=== PATIENT | male | born 1995 | race Caucasian/White ===

== ENCOUNTER 2024-08-20 14:26 | Inpatient (IN) | payer SELFPAY ==
[2024-08-20] VITALS (23 sets, daily range): BP systolic 92–151; BP diastolic 55–86; PULSE 78–119; RESP 15–24; TEMP 36.4–38.8; O2SAT 91–100; BMI 37.3
[2024-08-20 14:59] LABS: Basophils # 0.1 10^3/uL (0.0-0.1); Basophils % 0.3 %; Hematocrit 44.7 % (37-53); Lymphocytes # 3.3 10^3/uL (0.8-4.8); Lymphocytes % 14.5 %; Mean Corpuscular HGB Conc 32.2 g/dL (30-55); Mean Corpuscular Hemoglobin 26.6 pg (27-33); Mean Corpuscular Volume 82.5 fl (82-101); Mean Platelet Volume 9.6 fL (7.4-10.4); Monocytes # 2.1 10^3/uL (0.2-0.9); Monocytes % 9.3 %; Neutrophils # 17.26 10^3/uL (1.8-7.7); Neutrophils % 75.3 %; Nucleated Red Blood Cells % 0 %; Platelet Count 318 10^3/cmm (157-399); Red Blood Count 5.42 10^6/uL (3.85-5.65); Red Cell Distribution Width 13.3 % (12.1-15.1); White Blood Count 22.89 10^3/uL (3.29-11.43)
--- NOTE | 2024-08-20 15:09 | W.ED.ABDPA2 ---
Documented by User: CRISTOBAL Babcock 08/20/24 17:04 HPI - Abdominal Pain General: Chief Complaint: Abdominal Pain Stated Complaint: abd pain Time Seen by Provider: 08/20/24 15:07 Source: patient and family Mode of arrival: ambulatory Limitations: no limitations History of Present Illness: A 29-year-old male presents to the emergency department complaining of severe abdominal pain. Patient states he threw up 4 times on Monday and has had abdominal pain ongoing since. Patient states the pain is 10/10. Patient has not had a bowel movement recently due to decreased appetite and lack of intact. Patient states he has been taking Tylenol to help with his symptoms. Patient denies any chest pain, palpitations, diarrhea, or blood in the stool. No fevers. Patient arrives visibly uncomfortable. Reports no past medical history and takes no medications. MD elicited complaint: abdominal pain Pertinent past history: none Onset (ago): day(s) Pain Consistency: constant Location: Diffuse Severity: severe Quality: cramping and sharp Radiation: none Migration to: no migration Exacerbating factors: nothing Relieving factors: nothing Associated Symptoms: Reports nausea and vomiting; Denies change in stool character, chills, constipation, diarrhea, dysuria, fever(s), hematochezia, hematuria, loose stools and melena Related Data Home Medications ?Medication ?Instructions ?Recorded ?Confirmed No Known Home Medications 08/20/24 08/20/24 Allergies Allergy/AdvReac Type Severity Reaction Status Date / Time No Known Allergies Allergy Verified 08/20/24 15:02 Review of Systems Const: Reports: change in appetite; Denies: fever(s), chills or fatigue Card: Denies: chest pain or palpitations Resp: Denies: dyspnea, productive cough, non-productive cough or wheezing GI: Reports: abdominal pain, nausea and vomiting; Denies: diarrhea, constipation, change in stool character, hematochezia or melena : Denies: flank pain, dysuria or hematuria Musc: Denies: neck pain, back pain, extremity pain, extremity swelling, joint swelling or joint redness Skin/Breast: Denies: rash Neuro: Denies: headache(s), numbness in extremities, weakness in extremities, sensory changes or dizziness Physical Exam Const: COMMON NORMALS: no limitations and well nourished GENERAL APPEARANCE: in distress (appears uncomfortable secondary to pain) and ill appearing Eye: COMMON NORMALS: no scleral icterus Resp: COMMON NORMALS: normal respiratory effort and clear to auscultation bilaterally AUSCULTATION: clear to auscultation bilaterally Cardio: COMMON NORMALS: regular rhythm RATE: tachycardic RHYTHM: regular rhythm GI: COMMON NORMALS: No hepatosplenomegaly present, no masses and no bruits INSPECTION: Yes normal to inspection AUSCULTATION: Yes Hypoactive bowel sounds present PALPATION: Yes Tenderness to palpation present (GI) (diffusely), Yes Guarding due to palpation present (GI), Yes Rigid due to palpation and Yes No hepatosplenomegaly present : COMMON NORMALS: Yes no CVA tenderness BLADDER/KIDNEY EXAM: Yes no CVA tenderness Back/Pelvis: COMMON NORMALS: no CVA tenderness and thoracic and lumbar spine normal to inspection Extremity: GENERAL: Yes normal exam except as noted Skin: COMMON NORMALS: no rashes or lesions noted and no jaundice GENERAL SKIN EXAM: no rashes or lesions noted Course Vital Signs: Vital signs: Vital Signs Temperature 97.8 F 08/21/24 03:42 Pulse Rate 81 08/21/24 03:42 Respiratory Rate 16 08/21/24 03:42 Blood Pressure 98/61 08/21/24 03:42 Pulse Oximetry 96 08/21/24 03:42 Oxygen Delivery Me thod Nasal Cannula 08/21/24 03:42 Oxygen Flow Rate 1 08/21/24 03:42 MDM - Abdominal Pain Medical Decision Making Patient is a 29-year-old male here for complaints of diffuse abdominal pain. Arrives visibly uncomfortable and tachycardic. His white count of 22.89. He has an elevated lactate. Patient meets sepsis criteria. He was given an ideal body weight fluid bolus. Blood cultures obtained. He was started on IV Zosyn. CT of his abdomen and pelvis showing a perforated appendicitis. Spoke to Dr. Culver who will take patient to the OR later this evening. Dr. Miranda aware of patient and agrees with care plan here. Lab Data 08/21/24 04:54 08/20/24 14:46 Labs/Radiology: Radiology Impressions Abdomen/Pelvis CT 08/20/24 15:14 IMPRESSION: Findings most suggestive of or consistent with acute appendicitis with rupture with associated component of free air/pneumoperitoneum and marked mesenteric infiltration/inflammation and edema as noted above. Follow-up surgical evaluation. ADDENDUM: 08/20/24 7830 THIS REPORT CONTAINS FINDINGS THAT MAY BE CRITICAL TO PATIENT CARE. The findings were verbally communicated via telephone conference with ELA FOX at 4:27 PM SENIOR VALIDATION ENGINEER on 08/20/2024. The findings were acknowledged and understood. Laboratory Results WBC 22.89 10^3/uL (3.29-11.43) H 08/20/24 14:46 RBC 5.42 10^6/uL (3.85-5.65) 08/20/24 14:46 Hgb 14.40 g/dL (11.27-16.99) 08/20/24 14:46 Hct 44.7 % (37-53) 08/20/24 14:46 MCV 82.5 fl (82-101) 08/20/24 14:46 MCH 26.6 pg (27-33) L 08/20/24 14:46 MCHC 32.2 g/dL (30-55) 08/20/24 14:46 RDW 13.3 % (12.1-15.1) 08/20/24 14:46 Plt Count 318 10^3/cmm (157-399) 08/20/24 14:46 MPV 9.6 fL (7.4-10.4) 08/20/24 14:46 Neut % (Auto) 75.3 % 08/20/24 14:46 Lymph % (Auto) 14.5 % 08/20/24 14:46 [place] % (Auto) 9.3 % 08/20/24 14:46 Eos % (Auto) 0.0 % 08/20/24 14:46 Baso % (Auto) 0.3 % 08/20/24 14:46 Neut # (Auto) 17.26 10^3/uL (1.8-7.7) H 08/20/24 14:46 Lymph # (Auto) 3.3 10^3/uL (0.8-4.8) 08/20/24 14:46 [place] # (Auto) 2.1 10^3/uL (0.2-0.9) H 08/20/24 14:46 Eos # (Auto) 0.0 10^3/uL (0.0-0.8) 08/20/24 14:46 Baso # (Auto) 0.1 10^3/uL (0.0-0.1) 08/20/24 14:46 Nucleated RBC % (auto) 0 % 08/20/24 14:46 Nucleated RBCs # 0.0 /100WBC 08/20/24 14:46 Sodium 131 mmol/L (136-145) L 08/20/24 14:46 Potassium 3.0 mmol/L (3.5-5.1) L 08/20/24 14:46 Chloride 90 mmol/L (98-107) L 08/20/24 14:46 Carbon Dioxide 24 mmol/L (22-29) 08/20/24 14:46 Anion Gap 20.0 (5-19) H 08/20/24 14:46 BUN 11 mg/dL (6-20) 08/20/24 14:46 Creatinine 1.1 mg/dL (0.7-1.2) 08/20/24 14:46 GFR Calculation 79.1 mL/min (90-130) L 08/20/24 14:46 Glucose 160 mg/dL (65-115) H 08/20/24 14:46 Calculated Osmolality 275 mOsm/kg (285-295) L 08/20/24 14:46 Lactic Acid 3.4 mmol/L (0.5-2.2) H 08/20/24 14:46 Lactic Acid (Sepsis) 1.3 mmol/L (0.5-2.2) 08/20/24 16:56 Calcium 8.8 mg/dL (8.5-10.5) 08/20/24 14:46 Total Bilirubin 0.7 mg/dL (0.15-1.2) 08/20/24 14:46 AST 12 U/L (0-40) 08/20/24 14:46 ALT 9 U/L (0-41) 08/20/24 14:46 Alkaline Phosphatase 88 U/L (40-130) 08/20/24 14:46 Total Protein 7.7 g/dL (6.6-8.7) 08/20/24 14:46 Albumin 4.0 g/dL (3.5-5.2) 08/20/24 14:46 Globulin 3.7 g/dL (1.3-4.6) 08/20/24 14:46 Lipase 10 U/L (13-60) L 08/20/24 14:46 Urine Color Yellow (Yellow) 08/20/24 15:15 Urine Appearance Clear (CLEAR) 08/20/24 15:15 Urine pH 6.0 (5-7) 08/20/24 15:15 Ur Specific [place] 1.013 (1.005-1.030) 08/20/24 15:15 Urine Protein Trace (Negative) A 08/20/24 15:15 Urine Glucose (UA) Negative (Normal) 08/20/24 15:15 Urine Ketones Trace (Negative) 08/20/24 15:15 Urine Blood Negative (Negative) 08/20/24 15:15 Urine Nitrate Negative (Negative) 08/20/24 15:15 Urine Bilirubin Negative (Negative) 08/20/24 15:15 Urine Urobilinogen 1.0 mg/dL (Negative) 08/20/24 15:15 Ur Leukocyte Esterase Negative (Negative) 08/20/24 15:15 Urine RBC 0-2 /hpf (0-2) 08/20/24 15:15 Urine WBC 6-10 /hpf (0-5) 08/20/24 15:15 Ur Squamous Epith Cells 0-5 /hpf (0-5) 08/20/24 15:15 Amorphous Sediment Not Reportable 08/20/24 15:15 Urine Bacteria None seen /hpf (NONE) 08/20/24 15:15 Hyaline Casts 12.81 /lpf 08/20/24 15:15 All radiology interpretation(s) finalized by discharge Discharge Plan Discharge Patient Disposition: Admitted As Inpatient Admit Provider: Jovan Culver Clinical Impression: Perforated appendicitis Condition: Stable Coding Level of Care Code ED Retail And Restaurant Associate for Chg Fwd Documented by User: Kimo Miranda DO 08/21/24 06:01 HPI - Abdominal Pain General: Chief Complaint: Abdominal Pain Stated Complaint: abd pain Time Seen by Provider: 08/20/24 15:07 Related Data Home Medications ?Medication ?Instructions ?Recorded ?Confirmed No Known Home Medications 08/20/24 08/20/24 Allergies Allergy/AdvReac Type Severity Reaction Status Date / Time No Known Allergies Allergy Verified 08/20/24 15:02 Course Vital Signs: Vital signs: Vital Signs Temperature 97.8 F 08/21/24 03:42 Pulse Rate 81 08/21/24 03:42 Respiratory Rate 16 08/21/24 03:42 Blood Pressure 98/61 08/21/24 03:42 Pulse Oximetry 96 08/21/24 03:42 Oxygen Delivery Me thod Nasal Cannula 08/21/24 03:42 Oxygen Flow Rate 1 08/21/24 03:42 MDM - Abdominal Pain Medical Decision Making Patient is a 29-year-old male here for complaints of diffuse abdominal pain. Arrives visibly uncomfortable and tachycardic. His white count of 22.89. He has an elevated lactate. Patient meets sepsis criteria. He was given an ideal body weight fluid bolus. Blood cultures obtained. He was started on IV Zosyn. CT of his abdomen and pelvis showing a perforated appendicitis. Spoke to Dr. Culver who will take patient to the OR later this evening. Dr. Miranda aware of patient and agrees with care plan here. Chart reviewed and patient discussed with midlevel. Agree with assessment and plan. Lab Data 08/21/24 04:54 08/20/24 14:46 Labs/Radiology: Radiology Impressions Abdomen/Pelvis CT 08/20/24 15:14 IMPRESSION: Findings most suggestive of or consistent with acute appendicitis with rupture with associated component of free air/pneumoperitoneum and marked mesenteric infiltration/inflammation and edema as noted above. Follow-up surgical evaluation. ADDENDUM: 08/20/24 1630 THIS REPORT CONTAINS FINDINGS THAT MAY BE CRITICAL TO PATIENT CARE. The findings were verbally communicated via telephone conference with ELA FOX at 4:27 PM SENIOR VALIDATION ENGINEER on 08/20/2024. The findings were acknowledged and understood. Laboratory Results WBC 22.89 10^3/uL (3.29-11.43) H 08/20/24 14:46 RBC 5.42 10^6/uL (3.85-5.65) 08/20/24 14:46 Hgb 14.40 g/dL (11.27-16.99) 08/20/24 14:46 Hct 44.7 % (37-53) 08/20/24 14:46 MCV 82.5 fl (82-101) 08/20/24 14:46 MCH 26.6 pg (27-33) L 08/20/24 14:46 MCHC 32.2 g/dL (30-55) 08/20/24 14:46 RDW 13.3 % (12.1-15.1) 08/20/24 14:46 Plt Count 318 10^3/cmm (157-399) 08/20/24 14:46 MPV 9.6 fL (7.4-10.4) 08/20/24 14:46 Neut % (Auto) 75.3 % 08/20/24 14:46 Lymph % (Auto) 14.5 % 08/20/24 14:46 [place] % (Auto) 9.3 % 08/20/24 14:46 Eos % (Auto) 0.0 % 08/20/24 14:46 Baso % (Auto) 0.3 % 08/20/24 14:46 Neut # (Auto) 17.26 10^3/uL (1.8-7.7) H 08/20/24 14:46 Lymph # (Auto) 3.3 10^3/uL (0.8-4.8) 08/20/24 14:46 [place] # (Auto) 2.1 10^3/uL (0.2-0.9) H 08/20/24 14:46 Eos # (Auto) 0.0 10^3/uL (0.0-0.8) 08/20/24 14:46 Baso # (Auto) 0.1 10^3/uL (0.0-0.1) 08/20/24 14:46 Nucleated RBC % (auto) 0 % 08/20/24 14:46 Nucleated RBCs # 0.0 /100WBC 08/20/24 14:46 Sodium 131 mmol/L (136-145) L 08/20/24 14:46 Potassium 3.0 mmol/L (3.5-5.1) L 08/20/24 14:46 Chloride 90 mmol/L (98-107) L 08/20/24 14:46 Carbon Dioxide 24 mmol/L (22-29) 08/20/24 14:46 Anion Gap 20.0 (5-19) H 08/20/24 14:46 BUN 11 mg/dL (6-20) 08/20/24 14:46 Creatinine 1.1 mg/dL (0.7-1.2) 08/20/24 14:46 GFR Calculation 79.1 mL/min (90-130) L 08/20/24 14:46 Glucose 160 mg/dL (65-115) H 08/20/24 14:46 Calculated Osmolality 275 mOsm/kg (285-295) L 08/20/24 14:46 Lactic Acid 3.4 mmol/L (0.5-2.2) H 08/20/24 14:46 Lactic Acid (Sepsis) 1.3 mmol/L (0.5-2.2) 08/20/24 16:56 Calcium 8.8 mg/dL (8.5-10.5) 08/20/24 14:46 Total Bilirubin 0.7 mg/dL (0.15-1.2) 08/20/24 14:46 AST 12 U/L (0-40) 08/20/24 14:46 ALT 9 U/L (0-41) 08/20/24 14:46 Alkaline Phosphatase 88 U/L (40-130) 08/20/24 14:46 Total Protein 7.7 g/dL (6.6-8.7) 08/20/24 14:46 Albumin 4.0 g/dL (3.5-5.2) 08/20/24 14:46 Globulin 3.7 g/dL (1.3-4.6) 08/20/24 14:46 Lipase 10 U/L (13-60) L 08/20/24 14:46 Urine Color Yellow (Yellow) 08/20/24 15:15 Urine Appearance Clear (CLEAR) 08/20/24 15:15 Urine pH 6.0 (5-7) 08/20/24 15:15 Ur Specific [place] 1.013 (1.005-1.030) 08/20/24 15:15 Urine Protein Trace (Negative) A 08/20/24 15:15 Urine Glucose (UA) Negative (Normal) 08/20/24 15:15 Urine Ketones Trace (Negative) 08/20/24 15:15 Urine Blood Negative (Negative) 08/20/24 15:15 Urine Nitrate Negative (Negative) 08/20/24 15:15 Urine Bilirubin Negative (Negative) 08/20/24 15:15 Urine Urobilinogen 1.0 mg/dL (Negative) 08/20/24 15:15 Ur Leukocyte Esterase Negative (Negative) 08/20/24 15:15 Urine RBC 0-2 /hpf (0-2) 08/20/24 15:15 Urine WBC 6-10 /hpf (0-5) 08/20/24 15:15 Ur Squamous Epith Cells 0-5 /hpf (0-5) 08/20/24 15:15 Amorphous Sediment Not Reportable 08/20/24 15:15 Urine Bacteria None seen /hpf (NONE) 08/20/24 15:15 Hyaline Casts 12.81 /lpf 08/20/24 15:15 Discharge Plan Discharge Patient Disposition: Admitted As Inpatient Admit Provider: Jovan Culver Clinical Impression: Perforated appendicitis Condition: Stable Coding Level of Care Code ED Retail And Restaurant Associate for Josh Bennett
--- NOTE | 2024-08-20 15:14 | CTR_ITS ---
PROCEDURE INFORMATION: Exam: CT Abdomen And Pelvis With Contrast Exam date and time: 08/20/2024 3:48 PM Age: 29 years old Clinical indication: Abdominal pain; Generalized; Additional info: Severe abdominal pain, leukocytosis TECHNIQUE: Imaging protocol: Computed tomography of the abdomen and pelvis with contrast. Radiation optimization: All CT scans at this facility use at least one of these dose optimization techniques: automated exposure control; mA and/or kV adjustment per patient size (includes targeted exams where dose is matched to clinical indication); or iterative reconstruction. Contrast material: OMNIPAQUE 350; Contrast volume: 100 ml; Contrast route: INTRAVENOUS (IV); COMPARISON: No relevant prior studies available. RADIATION DOSE METRICS: Total DLP (mGy-cm): 1201.73 FINDINGS: Lungs: No infiltrate or effusion is seen within the visualized lung bases. Liver: Normal. No mass. Gallbladder and biliary ducts: Normal. No calcified stones. No ductal dilation. Pancreas: Normal. No ductal dilation. Spleen: Normal. No splenomegaly. Adrenal glands: Normal. No mass. Kidneys and ureters: Normal. No hydronephrosis. Stomach and bowel: No small bowel dilatation or obstruction. Incomplete colonic distension. Fluid within the right colon, with abnormal or edematous appearance of the proximal right colon/cecal region. Prominent pericecal mesenteric stranding and infiltration is seen, extending down into the right pelvis. Lack of identification of a normal appendix in the pericecal region with prominent infiltration and edema/inflammation and mild free air or pneumoperitoneum is seen upper right abdomen and also suggested in the lower right abdomen/upper right pelvis. Associated mild free fluid within the dependent pelvis. Stranding or inflammatory change likely related to appendicitis with perforation, affecting the adjacent cecum and adjacent small bowel in the right pelvis. A discrete or defined abscess fluid collection is not identified, though prominent stranding inflammatory change and/or edema is seen lower right abdomen and right pelvis region. Additional mild scattered mesenteric stranding or edema within the abdomen. Appendix: See Stomach and bowel finding. Intraperitoneal space: Other than inflammation/edema lower right abdomen/right pelvis and mild free fluid within the dependent pelvis, no significant ascites within the abdomen otherwise. Free air or pneumoperitoneum as already noted. Vasculature: Unremarkable. No abdominal aortic aneurysm. Lymph nodes: No significant lymphadenopathy. Urinary bladder: Urinary bladder is not well distended and with secondary mild wall thickening. Reproductive: Unremarkable as visualized. Bones/joints: Bone windows show no acute osseous abnormality. Soft tissues: Unremarkable. CT/CT abdomen pelvis w con* [id number] IMPRESSION: Findings most suggestive of or consistent with acute appendicitis with rupture with associated component of free air/pneumoperitoneum and marked mesenteric infiltration/inflammation and edema as noted above. Follow-up surgical evaluation.
[2024-08-20 15:17] LABS: Alanine Aminotransferase 9 U/L (0-41); Alkaline Phosphatase 88 U/L (40-130); Aspartate Amino Transferase 12 U/L (0-40); Blood Urea Nitrogen 11 mg/dL (6-20); Calcium 8.8 mg/dL (8.5-10.5); Carbon Dioxide 24 mmol/L (22-29); Chloride 90 mmol/L (98-107); Creatinine Clr Calc Pharmacy 127.5009; Globulin 3.7 g/dL (1.3-4.6); Glomerular Filtration Rate 79.1 mL/min (90-130); Glucose 160 mg/dL (65-115); Lipase 10 U/L (13-60); Osmolality Calculated 275 mOsm/kg (285-295); Sodium 131 mmol/L (136-145); Total Bilirubin 0.7 mg/dL (0.15-1.2); Total Protein 7.7 g/dL (6.6-8.7)
[2024-08-20 15:28] LABS: Bilirubin Urine Negative (Negative); Blood Urine Negative (Negative); Glucose Urine UA Negative (Normal); Ketones Urine Trace (Negative); Leukocyte Esterase Urine Negative (Negative); Nitrate Urine Negative (Negative); Protein Urine Trace (Negative); Specific Gravity, Urine 1.013 (1.005-1.030); Urine Appearance Clear (CLEAR); Urine Color Yellow (Yellow)
[2024-08-20] MEDS: ondansetron 2 mg/ML SDV 2 mL 4 MG IVP (15:29)
[2024-08-20] MEDS: morphine 4 mg/mL SDV 1 mL IVP (15:29)
[2024-08-20 15:30] LABS: Add Urine Microscopic? YES; Bacteria Urine None Seen /hpf; Hyaline Casts Urine 12.81 /lpf; RBC Urine 0-2 /hpf (0-2); Squamous Epithelial Cell Urine 0-5 /hpf (0-5)
[2024-08-20] MEDS: sodium chloride 0.9% 1,000 ML 999 ML IV (15:33)
[2024-08-20 15:37] LABS: Lactic Sepsis W/Reflex 3.4 mmol/L (0.5-2.2)
[2024-08-20] MEDS: iohexol 350 mg/mL 500 mL Btl (per mL) IV (15:50)
[2024-08-20 15:55] LABS: UA Slide Review UA Slide Review Perf
[2024-08-20 15:57] LABS: Add Urine Culture? No
[2024-08-20] MEDS: HYDROMORPHONE HCL 0.5 MG/0.5 ML INJ IVP (15:57)
[2024-08-20] MEDS: sodium chloride 0.9% 1,000 ML 1500 ML IV (16:35)
--- NOTE | 2024-08-20 16:46 | P.HP_ITS ---
Providers/Chief Complaint 2 Chief Complaint: abd pain History of Present Illness Sudheer Rhodes is a 29 year old male who presents with perforated appendicitis. Patient reports several days of right lower quadrant pain. Intermittent nausea vomiting. No abdominal surgeries. Medications/Allergies Home Medications ?Medication ?Instructions ?Recorded ?Confirmed ?Last Taken ?Type No Known Home Medications 08/20/2408/10 Unknown History Allergies Allergy/AdvReac Type Severity Reaction Status Date / Time No Known Allergies Allergy Verified 08/20/24 15:02 Vitals/I&O/Wt Last Vital Signs Temp 98.4 F 08/20/24 14:57 Pulse 108 H 08/20/24 16:30 Resp 15 08/20/24 16:30 BP 137/72 08/20/24 16:30 Pulse Ox 95 08/20/24 16:30 O2 Del Method Room Air 08/20/24 16:30 Weight last 48 hrs Weight 260 lb Physical Exam 2 Narrative: Chest: Unlabored breathing room air. No lymphadenopathy. Heart: Regular rate and rhythm. Abdomen: Soft, tender right lower quadrant, mildly distended. No masses or lymphadenopathy. Data 08/20/24 14:46 08/20/24 14:46 A&P Assessment and plan (1) Perforated appendicitis: Plan 29-year-old male who presents with perforated appendicitis. Discussed risk and benefits and patient agrees to proceed with laparoscopic appendectomy, possible open, possible drain placement. Patient understands that since this is perforated appendicitis we may need to widely drain the right lower quadrant and perform an interval appendectomy several weeks down the line. PDMP PDMP Reviewed: Not Reviewed Attestations 2 Medical Necessity Statement*: IV antibiotics, IV pain meds, IV fluid Coding Level of Care Code 28961 Diagnoses Perforated appendicitis K35.32 Time Spent (min) 30
[2024-08-20 16:57] LABS: Reflex Lactate Order REFLEX LACTIC ORDERD
[2024-08-20] MEDS: piperacillin-tazobactam 3.375 GM in sodium chloride 0.9% (plus) 50 ML IV ×2 (17:06→18:00)
--- NOTE | 2024-08-20 17:07 | ANES.PREANE2 ---
Pre-Anesthetic Assessment Height/Weight: Height 5 ft 10 in Weight 260 lb Temp Pulse Resp BP Pulse Ox O2 Del Method 98.4 F 108 H 15 137/72 95 Room Air 08/20/24 14:57 08/20/24 16:30 08/20/24 16:30 08/20/24 16:30 08/20/24 16:30 08/20/24 16:30 Preop Diagnosis: acute appendicitis Operation Date: 08/20/24 13:55 Proposed Procedures p Appendectomy(Right) - Jovan Culver MD Was Beta Heidy taken within 24 hours: N/A Was Clonidine taken within 24 hours: N/A Social No alcohol and No tobacco Exam alert, oriented x 3, clear to auscultation bilaterally and regular rate & rhythm Airway Submandibular: within normal limits Cervical ROM: within normal limits Mallampati: Class I Dentition: full Anesthetic Plan ASA status: 2E Anesthesia: General Other: Patient presented to the ED today with severe abdominal pain, imaging suggetive of acute appendicitis. No prior issues with anesthesia NPO since 10am, yony meredith Labs reviewed, leukocytosis noted hyponatremia, na 131 hypokalemia, k+ 3.0 Patient is afebrible, tachycardic in ED Plan for GETA Medications/Allergies Home Medications ?Medication ?Instructions ?Recorded ?Confirmed ?Last Taken ?Type No Known Home Medications 08/20/24 08/20/24 Unknown History Allergies Allergy/AdvReac Type Severity Reaction Status Date / Time No Known Allergies Allergy Verified 08/20/24 15:02 Data Anesthesia 08/20/24 14:46 08/20/24 14:46 Short CBC 08/20/24 Range/Units 14:46 WBC 22.89 H (3.29-11.43) 10^3/uL Hgb 14.40 (11.27-16.99) g/dL Hct 44.7 (37-53) % MCV 82.5 (82-101) fl Plt Count 318 (157-399) 10^3/cmm Neut % (Auto) 75.3 % Neut # (Auto) 17.26 H (1.8-7.7) 10^3/uL BMP 08/20/24 14:46 Sodium 131 L Potassium 3.0 L Chloride 90 L Carbon Dioxide 24 BUN 11 Creatinine 1.1 Glucose 160 H Calcium 8.8 Liver Function 08/20/24 Range/Units 14:46 Total Bilirubin 0.7 (0.15-1.2) mg/dL AST 12 (0-40) U/L ALT 9 (0-41) U/L Alkaline Phosphatase 88 (40-130) U/L Albumin 4.0 (3.5-5.2) g/dL Urine 08/20/24 Range/Units 15:15 Urine Color Yellow (Yellow) Urine Appearance Clear (CLEAR) Urine pH 6.0 (5-7) Ur Specific [place] 1.013 (1.005-1.030) Urine Protein Trace A (Negative) Urine Glucose (UA) Negative (Normal) Urine Ketones Trace (Negative) Urine Nitrate Negative (Negative) Urine Bilirubin Negative (Negative) Ur Leukocyte Esterase Negative (Negative) Urine RBC 0-2 (0-2) /hpf Urine WBC 6-10 (0-5) /hpf Microbiology 08/20/24 16:56 Blood Culture - Preliminary Blood SPECIMEN COLLECTED 08/20/24 16:54 Blood Culture - Preliminary Blood SPECIMEN COLLECTED Cardiac Studies: No Data to Display
[2024-08-20 17:19] LABS: Lactic Acid level (Lactate) 1.3 mmol/L (0.5-2.2)
--- NOTE | 2024-08-20 18:06 | PC.NURSE ---
1520. 137/72 107 hr 99% RA. rolled to surgery.
[2024-08-20] MEDS: BUPivacaine 0.25% INJ 10 mL INJECTION (19:00)
[2024-08-20] MEDS: lidocaine-epi 1% 20 mL INJ INJECTION (19:00)
--- NOTE | 2024-08-20 19:16 | P.OP_ITS ---
Operative Report Date of procedure: August 20, 2024 Pre-op diagnosis: Perforated appendicitis Post-op diagnosis: same Post-op findings: Large abscess in right iliac fossa. Unable to dissect appendix safely. Procedure done: Attempted laparoscopic appendectomy. Peritoneal drain placement x 2 and abdominal washout. Implants: N/A Specimens removed/disposition: N/A Pathology: none sent Surgeon: Jovan uClver MD Electrical/Instrument Technician: N/A Anesthesia: General Estimated blood loss (mL): 20 Complications: N/A Findings: Perforated appendicitis. Large abscess in right iliac fossa. Unable to dissect appendix safely. Abdominal washout using 4 L of normal saline. Placed two 19 Hebrew Sai drains in the pelvis. Condition: stable Disposition: floor Brief History: 29-year-old male who presented with perforated appendicitis. Discussed risk and benefits of laparoscopic appendectomy possible open, possible drain placement. Patient agreed to proceed. Procedure: After having a discussion about risks and benefits and obtaining consent from POA, patient was brought to the OR. SCDs were functioning prior to intubation. Zosyn was given prior to incision. General anesthesia was administered. Left arm was tucked. A pacheco catheter was placed. The abdomen was prepped and draped in the usual sterile fashion. Insufflation was achieved using a Veress needle at Kirby's point (15mmHg). A 5mm port was placed at the umbilicus using an optical view port. Then a 5mm port was placed suprapubically, and a 12mm port was placed in the left lower quadrant. The abdomen was inspected and no injuries were noted. Patient was placed in Trendelenburg and the table was rotated left. Upon inspection of the right iliac fossa, a large abscess was encountered. Using a laparoscopic suction/erp business analyst the abscess was washed out. The small bowel was densely adhered to the cecum and given the severe inflammatory changes with significant disruption of the right iliac fossa anatomy, I aborted the dissection given that I did not deem it safe to continue with the appendectomy. I then proceeded to wash out the right iliac fossa as well as the entire abdomen using 4L of normal saline. I had to place an additional right lower quadrant 12mm port for adequate drain placement. I then placed one 19F Sai drain in the right iliac fossa, and another one in the left iliac fossa. The abdomen was desufflated. The incisions were irrigated with normal saline before proceeding to close them with salena. The Veress needle site was closed using surgical glue. Gauze dressings were applied. Pacheco catheter removed prior to the patient waking up. The patient woke up from anesthesia without any complications and transferred to PACU.
--- NOTE | 2024-08-20 20:18 | ANE.PACU2 ---
Inpatient post-anesthesia follow up: Airway intact: Yes Vital signs: Temperature 98.2 F Pulse Rate 97 Respiratory Rate 18 Blood Pressure 129/76 Pulse Oximetry 90 Oxygen Delivery Me thod Room Air Oxygen Flow Rate 1 Fraction of Inspir ed Oxygen Hydration adequate: Yes Nausea and vomiting: No Pain level: 1 Mental status: Baseline
--- NOTE | 2024-08-20 20:31 | PC.NURSE ---
0826 - assisted to 256-2 per this nurse and Raquel BEATTY, RN - [address] at 2LNC - IV to right ac patent - abd dressing c/d/i x2 Sai drains compressed - pt alert and in no distress with family at side upon this nurse exiting - Bedside hand off to Johana - BP 106/68 - pulse 103 - 02% 2LNC - temp 99
[2024-08-20] MEDS: lactated ringers 1,000 ML 100 ML IV (20:44)
[2024-08-20] MEDS: ketorolac 30 mg/mL INJ 15 MG IVP (20:44)
[2024-08-21] VITALS (9 sets, daily range): BP systolic 93–146; BP diastolic 61–77; PULSE 71–107; RESP 16–18; TEMP 36.4–37.2; O2SAT 90–98
[2024-08-21] MEDS: piperacillin-tazobactam 3.375 GM in sodium chloride 0.9% (plus) 50 ML IV ×3 (00:31→16:52)
[2024-08-21] MEDS: ketorolac 30 mg/mL INJ 15 MG IVP ×4 (02:24→20:34)
[2024-08-21 05:23] LABS: Basophils % 0.2 %; Hematocrit 41.3 % (37-53); Lymphocytes # 0.5 10^3/uL (0.8-4.8); Lymphocytes % 3.1 %; Mean Corpuscular HGB Conc 31.5 g/dL (30-55); Mean Corpuscular Hemoglobin 26.2 pg (27-33); Mean Corpuscular Volume 83.1 fl (82-101); Mean Platelet Volume 9.9 fL (7.4-10.4); Monocytes # 0.7 10^3/uL (0.2-0.9); Monocytes % 4.6 %; Neutrophils # 13.71 10^3/uL (1.8-7.7); Neutrophils % 91.8 %; Nucleated Red Blood Cells % 0 %; Platelet Count 213 10^3/cmm (157-399); Red Blood Count 4.97 10^6/uL (3.85-5.65); Red Cell Distribution Width 13.3 % (12.1-15.1); White Blood Count 14.93 10^3/uL (3.29-11.43)
[2024-08-21 06:01] LABS: Anion Gap 14.7 (5-19); Blood Urea Nitrogen 13 mg/dL (6-20); Calcium 8.3 mg/dL (8.5-10.5); Carbon Dioxide 24 mmol/L (22-29); Chloride 100 mmol/L (98-107); Creatinine Clr Calc Pharmacy 162.0196; Glomerular Filtration Rate 99.8 mL/min (90-130); Glucose 182 mg/dL (65-115); Osmolality Calculated 283 mOsm/kg (285-295); Potassium 4.7 mmol/L (3.5-5.1); Sodium 134 mmol/L (136-145)
[2024-08-21] MEDS: heparin 5,000 unit/mL INJ 1 mL 5000 UNIT SUBCUT ×2 (08:03→16:51)
--- NOTE | 2024-08-21 09:53 | PC.CHAP ---
Pastoral Care Encounter/Spiritual Assessment Type of Contact [] Declined electric solderer visit [] Patient/Family/Request visit [] Outpatient visit [] Follow-up visit [] Physician referral [] Code/Alert [x] Routine visit [] Staff referral [] Actively dying [] Patient sleeping [x] Family support [] [] Out of room [] Palliative care [] [] Receiving care in room [] Pre-surgical visit [] Trauma [] Long length of stay [] ICU visit [] Other: Relational/Emotional Strength [x] Patient feels connected with others/family/visitors/staff [] Distress [] Loneliness/isolation [] Abandonment Spirituality of Patient [x] Person of Nyla [] Attends Anglican of their Nyla [x] Believes in Prayer [] Reads Bible or Protestant materials [] There are Spiritual issues to be addressed Knifer Up Interventions [x] Prayer [x] Active listening [x] Non-anxious presence [x] Spiritual/emotional support [] Crisis/trauma care [] Spiritual counseling [] Bereavement support [] Provided bereavement packet [] Provided Bible/devotional materials [] Provided toy/stuffed animal, coloring book to patient or family member [] Provided Communion [] Anointing/Katy [] Salvation [x] Completed spiritual assessment [] Other: Impact on Illness or Injury [] Angry [] Fearful [] Anxious [] Often cries [] Exhaustion [] Unable to work [] Unable to attend anabaptism [] Unable to walk/stand [] Unable to read [] Unable to drive [] Unable to eat/drink [] Unable to sleep [] Unable to be with family [] Patient intubated [] Other: Summary Time spent with patient 5 min
--- OUTSIDE RECORDS SUMMARY | 2024-08-21 10:42 | XMS_ITS | Patient Health Record ---
Author Organization [facility] Address [address] [place] [address] Support Name Relationship Address Phone Chauncey Rhodes Emergency Contact [address] [place] [address] Malou Rhodes Guarantor Unknown [phone] Reason For Referral No Information Medications Medication SIG (Take, Route, Fr equency, Duration) Notes Start Date End Date Status Nasonex 50 MCG/ACT 2 sprays in each nos tril Nasally Once a day for 30 day(s) 07/24/2016 Active Sudafed 30 MG 1 tablet as needed O rally every 6 hrs for 6 days 07/24/2016 Active Meclizine HCl 25 MG 1 tablet as needed O rally Once a day for 14 days 07/24/2016 Active Plan Of Treatment No Information Medical (General) History Medical History History ICD Code Ear issues
[2024-08-21] MEDS: morphine 4 mg/mL SDV 1 mL IVP ×2 (12:22→20:34)
--- NOTE | 2024-08-21 12:29 | P.PN_ITS ---
Subjective 2 Subjective: White count down No fevers Pain mildly improved Left drain purulent. Right drain serosanguineous. Patient tolerating regular diet. Vitals/I&O/Wt Last Vital Signs Temp 97.6 F 08/21/24 08:00 Pulse 71 08/21/24 08:00 Resp 17 08/21/24 12:22 BP 100/61 08/21/24 08:00 Pulse Ox 98 08/21/24 08:00 O2 Del Method Room Air 08/21/24 08:00 O2 Flow Rate 1 08/21/24 03:42 08/20/24 08/21/24 08/21/24 22:59 06:59 14:59 Intake Total 150 / 150 553.333 / 703.333 480 / 480 Output Total 270 / 270 110 / 380 125 / 125 Balance -120 / -120 443.333 / 323.333 355 / 355 Weight last 48 hrs Weight 279 lb 14.4 oz Weight 279 lb 11.2 oz Weight 260 lb Physical Exam 2 Narrative: Chest: Unlabored breathing room air. No lymphadenopathy. Heart: Regular rate and rhythm. Abdomen: Soft, tender diffusely, mildly distended. No masses or lymphadenopathy. Right drain serosanguineous. Left drain purulent. Data 08/21/24 04:54 08/21/24 04:54 Micro: Microbiology 08/20/24 16:56 Blood Culture - Preliminary Blood SPECIMEN COLLECTED 08/20/24 16:54 Blood Culture - Preliminary Blood SPECIMEN COLLECTED A&P Assessment and plan (1) Perforated appendicitis: Plan 29-year-old male who presented with perforated appendicitis. POD 1 1 diagnostic laparoscopy, washout, drain placement x 2. Responding appropriately. Okay for regular diet. Will plan to continue with IV antibiotics and assess response. Anticipating hospital stay greater than 2 nights. PDMP PDMP Reviewed: Not Reviewed Attestations 2 Medical Necessity Statement*: IV antibiotics, serial physical exams Coding Level of Care Code 11118 Diagnoses Perforated appendicitis K35.32 Time Spent (min) 30
[2024-08-21] MEDS: lactated ringers 1,000 ML 50 ML IV (20:34)
[2024-08-21] MEDS: ondansetron 2 mg/ML SDV 2 mL 4 MG IVP (20:46)
[2024-08-22] VITALS (7 sets, daily range): BP systolic 107–134; BP diastolic 56–78; PULSE 95–108; RESP 16–20; TEMP 36.8–37.2; O2SAT 89–94
[2024-08-22] MEDS: heparin 5,000 unit/mL INJ 1 mL 5000 UNIT SUBCUT ×4 (00:01→23:15)
[2024-08-22] MEDS: ketorolac 30 mg/mL INJ 15 MG IVP ×4 (02:10→19:56)
[2024-08-22] MEDS: ondansetron 2 mg/ML SDV 2 mL 4 MG IVP ×3 (06:06→22:31)
--- NOTE | 2024-08-22 06:33 | PC.NURSE ---
Dr. Anand notified of nausea not relieved by Zofran. PRN Compazine ordered.
[2024-08-22] MEDS: prochlorperazine 10 mg/2 mL Inj 5 MG IVP (06:45)
[2024-08-22] MEDS: piperacillin-tazobactam 3.375 GM in sodium chloride 0.9% (plus) 50 ML IV ×4 (08:34→23:11)
[2024-08-22 11:25] LABS: Basophils % 0.1 %; Eosinophils % 0.1 %; Lymphocytes # 0.7 10^3/uL (0.8-4.8); Lymphocytes % 4.2 %; Mean Corpuscular HGB Conc 32.1 g/dL (30-55); Mean Corpuscular Hemoglobin 26.2 pg (27-33); Mean Corpuscular Volume 81.6 fl (82-101); Mean Platelet Volume 9.6 fL (7.4-10.4); Monocytes # 0.9 10^3/uL (0.2-0.9); Monocytes % 5.7 %; Neutrophils # 14.37 10^3/uL (1.8-7.7); Neutrophils % 89.5 %; Nucleated Red Blood Cells % 0 %; Platelet Count 265 10^3/cmm (157-399); Red Blood Count 5.15 10^6/uL (3.85-5.65); Red Cell Distribution Width 13.5 % (12.1-15.1); White Blood Count 16.04 10^3/uL (3.29-11.43)
[2024-08-22] MEDS: morphine 4 mg/mL SDV 1 mL IVP (12:22)
--- NOTE | 2024-08-22 12:37 | PC.NURSE ---
Pt has had several loose BM's and an episode of emesis. This nurse called to inform Dr. Culver at 1235. Orders given to bump up LR to 100mL/Hr and change diet to clear liquid diet.
--- NOTE | 2024-08-22 14:59 | P.PN_ITS ---
Subjective 2 Subjective: Afebrile Nauseated Heart rate low 100 Drains serosanguineous Vitals/I&O/Wt Last Vital Signs Temp 98.3 F 08/22/24 12:00 Pulse 104 H 08/22/24 12:00 Resp 18 08/22/24 12:22 BP 117/75 08/22/24 12:00 Pulse Ox 94 08/22/24 12:22 O2 Del Method Nasal Cannula 08/22/24 12:00 O2 Flow Rate 1 08/22/24 03:48 08/21/24 08/22/24 08/22/24 22:59 06:59 14:59 Intake Total 170 / 1556.667 461.667 / 2018.334 2332.5 / 2332.5 Output Total 40 / 195 560 / 755 110 / 110 Balance 130 / 1361.667 -98.333 / 6314.609 5974.5 / 2222.5 Weight last 48 hrs Weight 280 lb 11.2 oz Weight 279 lb 14.4 oz Weight 279 lb 11.2 oz Physical Exam 2 Narrative: Chest: Unlabored breathing room air. No lymphadenopathy. Heart: Regular rate and rhythm. Abdomen: Soft, diffusely tender, mildly distended. No masses or lymphadenopathy. Drains are serosanguineous Data 08/22/24 11:15 08/21/24 04:54 Micro: Microbiology 08/20/24 16:56 Blood Culture - Preliminary Blood NEGATIVE TO DATE 08/20/24 16:54 Blood Culture - Preliminary Blood NEGATIVE TO DATE A&P Assessment and plan (1) Perforated appendicitis: Plan 29-year-old male who presented with perforated appendicitis. POD 2 diagnostic laparoscopy with washout and drain placement x 2. Today nauseated and feeling slightly worse. Will increase IV fluids to 100 an hour. Continue IV antibiotics. Drains are now serosanguineous. Expecting a 5-day course of IV antibiotics. Will repeat CT scan on day 5. PDMP PDMP Reviewed: Not Reviewed Attestations 2 Medical Necessity Statement*: IV antibiotics, IV fluids, serial physical exams. Coding Level of Care Code 39496 Diagnoses Perforated appendicitis K35.32 Time Spent (min) 30
[2024-08-23] MEDS: ketorolac 30 mg/mL INJ 15 MG IVP ×3 (02:00→13:50)
[2024-08-23] MEDS: prochlorperazine 10 mg/2 mL Inj 5 MG IVP ×3 (03:56→20:50)
[2024-08-23 03:58] VITALS: BP 129/76; PULSE 88; RESP 18; TEMP 36.9; O2SAT 90
[2024-08-23 07:40] VITALS: BP 115/73; PULSE 87; RESP 17; TEMP 36.8; O2SAT 90
[2024-08-23] MEDS: ondansetron 2 mg/ML SDV 2 mL 4 MG IVP ×2 (08:25→13:50)
[2024-08-23] MEDS: heparin 5,000 unit/mL INJ 1 mL 5000 UNIT SUBCUT ×2 (08:27→16:26)
[2024-08-23] MEDS: piperacillin-tazobactam 3.375 GM in sodium chloride 0.9% (plus) 50 ML IV ×2 (08:27→16:26)
--- NOTE | 2024-08-23 09:09 | P.PN_ITS ---
Subjective 2 Subjective: Multiple episodes of emesis overnight Abdomen soft, nonperitonitic Drains serosanguineous White blood cell count pending Afebrile, vital signs stable Vitals/I&O/Wt Last Vital Signs Temp 98.3 F 08/23/24 07:40 Pulse 87 08/23/24 07:40 Resp 17 08/23/24 07:40 BP 115/73 08/23/24 07:40 Pulse Ox 90 08/23/24 07:40 O2 Del Method Nasal Cannula 08/23/24 07:40 O2 Flow Rate 2.5 08/23/24 03:58 08/22/24 08/23/24 08/23/24 22:59 06:59 14:59 Intake Total 276.667 / 2609.167 530 / 3139.167 Output Total 160 / 270 300 / 570 Balance 116.667 / 2339.167 230 / 2569.167 Weight last 48 hrs Weight 276 lb 1.6 oz Weight 280 lb 11.2 oz Physical Exam 2 Narrative: Chest: Unlabored breathing room air. No lymphadenopathy. Heart: Regular rate and rhythm. Abdomen: Soft, diffusely tender, mildly distended. No masses or lymphadenopathy. Drain serosanguineous. Benign abdomen. Data 08/22/24 11:15 08/21/24 04:54 A&P Assessment and plan (1) Perforated appendicitis: Plan 29-year-old male who presented with perforated appendicitis. POD 3 diagnostic laparoscopy, washout, drain placement x 2. Now having an ileus as expected. N.p.o., continue maintenance IV fluids, added Protonix, continue IV antibiotics. Will scan him POD 5. Had a discussion with patient and relative and answered their questions. PDMP PDMP Reviewed: Not Reviewed Attestations 2 Medical Necessity Statement*: IV antibiotics, IV fluids, serial physical exams, interval CT scan Coding Level of Care Code 58172 Diagnoses Perforated appendicitis K35.32 Time Spent (min) 30
[2024-08-23 09:31] LABS: Basophils % 0.2 %; Eosinophils # 0.1 10^3/uL (0.0-0.8); Eosinophils % 0.9 %; Lymphocytes # 0.9 10^3/uL (0.8-4.8); Mean Corpuscular HGB Conc 31.8 g/dL (30-55); Mean Corpuscular Hemoglobin 26.4 pg (27-33); Mean Corpuscular Volume 83.2 fl (82-101); Mean Platelet Volume 9.6 fL (7.4-10.4); Monocytes # 0.9 10^3/uL (0.2-0.9); Monocytes % 7.1 %; Neutrophils # 10.91 10^3/uL (1.8-7.7); Neutrophils % 84.4 %; Nucleated Red Blood Cells % 0 %; Platelet Count 281 10^3/cmm (157-399); Red Blood Count 4.81 10^6/uL (3.85-5.65); Red Cell Distribution Width 13.6 % (12.1-15.1)
[2024-08-23] MEDS: pantoprazole 40 mg SDV IVP (10:49)
[2024-08-23] MEDS: lactated ringers 1,000 ML 100 ML IV (10:49)
[2024-08-23 12:20] VITALS: BP 119/73; PULSE 85; RESP 16; TEMP 36.9; O2SAT 90
[2024-08-23 15:51] VITALS: BP 116/64; PULSE 87; RESP 16; TEMP 37.1; O2SAT 91
[2024-08-23 19:48] VITALS: BP 121/83; PULSE 83; RESP 16; TEMP 37; O2SAT 91
[2024-08-23 23:31] VITALS: BP 127/74; PULSE 83; RESP 15; TEMP 36.9; O2SAT 91
[2024-08-24] MEDS: piperacillin-tazobactam 3.375 GM in sodium chloride 0.9% (plus) 50 ML IV ×4 (00:46→23:19)
[2024-08-24] MEDS: prochlorperazine 10 mg/2 mL Inj 5 MG IVP ×3 (00:46→16:22)
[2024-08-24] MEDS: heparin 5,000 unit/mL INJ 1 mL 5000 UNIT SUBCUT ×4 (00:46→23:20)
[2024-08-24] MEDS: lactated ringers 1,000 ML 100 ML IV ×2 (02:38→12:38)
[2024-08-24] MEDS: trazodone 50 mg Tablet 25 MG PO (02:54)
[2024-08-24 04:00] VITALS: BP 126/80; PULSE 83; RESP 16; TEMP 36.9; O2SAT 92
[2024-08-24 08:00] VITALS: BP 121/65; PULSE 75; RESP 15; TEMP 36.7; O2SAT 91
[2024-08-24] MEDS: pantoprazole 40 mg SDV IVP (08:27)
--- NOTE | 2024-08-24 09:50 | P.PN_ITS ---
Subjective 2 Subjective: No fever Vital signs stable Nausea subsided Feeling better Abdomen benign Draining serosanguineous Vitals/I&O/Wt Last Vital Signs Temp 98.0 F 08/24/24 08:00 Pulse 75 08/24/24 08:00 Resp 15 08/24/24 08:00 BP 121/65 08/24/24 08:00 Pulse Ox 91 08/24/24 08:00 O2 Del Method Room Air 08/24/24 08:00 O2 Flow Rate 2.5 08/23/24 03:58 08/23/24 08/24/24 08/24/24 22:59 06:59 14:59 Intake Total 1050 / 1100 50 / 1150 Output Total 355 / 435 Balance 1050 / 1020 -305 / 715 Weight last 48 hrs Weight 271 lb 11.2 oz Weight 276 lb 1.6 oz Physical Exam 2 Narrative: Chest: Unlabored breathing room air. No lymphadenopathy. Heart: Regular rate and rhythm. Abdomen: Soft, mildly tender, nondistended. No masses or lymphadenopathy. Drain serosanguineous Data 08/23/24 08:58 08/21/24 04:54 A&P Assessment and plan (1) Perforated appendicitis: Plan 29-year-old male who presented with perforated appendicitis. POD 4 diagnostic laparoscopy, drain placement, washout. Doing better today. Will repeat labs tomorrow and advance diet if doing well still. PDMP PDMP Reviewed: Not Reviewed Attestations 2 Medical Necessity Statement*: IV antibiotics Coding Level of Care Code 53808 Diagnoses Perforated appendicitis K35.32 Time Spent (min) 30
[2024-08-24 12:00] VITALS: BP 128/79; PULSE 65; RESP 17; TEMP 36.5; O2SAT 92
[2024-08-24 16:00] VITALS: BP 130/68; PULSE 69; RESP 16; TEMP 36.3; O2SAT 91
[2024-08-24 20:00] VITALS: BP 116/74; PULSE 64; RESP 16; TEMP 36.9; O2SAT 93
[2024-08-24 23:56] VITALS: BP 132/76; PULSE 72; RESP 16; TEMP 36.9; O2SAT 93
[2024-08-25] MEDS: lactated ringers 1,000 ML 100 ML IV (01:08)
[2024-08-25 04:00] VITALS: BP 121/74; PULSE 72; RESP 15; TEMP 36.7; O2SAT 94
[2024-08-25 07:49] VITALS: BP 129/69; PULSE 65; RESP 16; TEMP 36.8; O2SAT 97
[2024-08-25 09:03] LABS: Basophils # 0.1 10^3/uL (0.0-0.1); Basophils % 0.5 %; Eosinophils # 0.3 10^3/uL (0.0-0.8); Eosinophils % 2.8 %; Lymphocytes # 1.6 10^3/uL (0.8-4.8); Lymphocytes % 14.2 %; Mean Corpuscular HGB Conc 31.2 g/dL (30-55); Mean Corpuscular Hemoglobin 25.8 pg (27-33); Mean Corpuscular Volume 82.7 fl (82-101); Mean Platelet Volume 9.4 fL (7.4-10.4); Monocytes % 8.8 %; Neutrophils # 8.29 10^3/uL (1.8-7.7); Neutrophils % 72.9 %; Nucleated Red Blood Cells % 0 %; Platelet Count 310 10^3/cmm (157-399); Red Blood Count 5.08 10^6/uL (3.85-5.65); Red Cell Distribution Width 13.7 % (12.1-15.1); White Blood Count 11.37 10^3/uL (3.29-11.43)
--- NOTE | 2024-08-25 09:04 | P.PN_ITS ---
Subjective 2 Subjective: More awake and down Afebrile Vital signs stable Feeling better Drains serous Vitals/I&O/Wt Last Vital Signs Temp 98.2 F 08/25/24 07:49 Pulse 65 08/25/24 07:49 Resp 16 08/25/24 07:49 BP 129/69 08/25/24 07:49 Pulse Ox 97 08/25/24 07:49 O2 Del Method Room Air 08/25/24 07:49 O2 Flow Rate 2.5 08/23/24 03:58 08/24/24 08/25/24 08/25/24 22:59 06:59 14:59 Intake Total 50 / 1258.333 891.667 / 2150.000 Output Total 95 / 95 75 / 170 Balance -45 / 1163.333 816.667 / 1980.000 Weight last 48 hrs Weight 271 lb 12.8 oz Weight 271 lb 11.2 oz Physical Exam 2 Narrative: Chest: Unlabored breathing room air. No lymphadenopathy. Heart: Regular rate and rhythm. Abdomen: Soft, nontender, nondistended. No masses or lymphadenopathy. Drains serous Data 08/25/24 08:54 08/21/24 04:54 A&P Assessment and plan (1) Perforated appendicitis: Plan 29-year-old male who presented with perforated appendicitis. POD 5 diagnostic laparoscopy, washout, drain placement x 2. Responded appropriately. If tolerating regular diet he may be discharged today. Complete 14 days of antibiotics. Follow-up in 1 week in clinic. PDMP PDMP Reviewed: Last Reviewed 08/25/24 11:28 EST by Jovan Culver MD Attestations 2 Medical Necessity Statement*: IV antibiotics, IV fluids Coding Level of Care Code 08028 Diagnoses Perforated appendicitis K35.32 Time Spent (min) 30
--- NOTE | 2024-08-25 10:31 | P.DS_ITS ---
Discharge Providers Date of Admission: 08/20/24 19:57 Date of Discharge: August 25, 2024 Attending Provider at Admission: Jovan Culver MD Attending Provider at Discharge: Jovan Culver MD Diagnoses at Discharge Discharge Diagnosis (1) Perforated appendicitis: Status: Acute Reason for Visit Reason for Visit: abd pain Hospital Course Hospital Course 29-year-old male who presented with perforated appendicitis. Taken to the operating room and given severe inflammatory changes in the right lower quadrant the decision was made to washout the abdomen and placed 2 peritoneal drains. Patient was treated with IV antibiotics for 5 days. Responded appropriately. Discharged once tolerating regular diet. Patient will follow-up with me in 1 week. Physical Exam Narrative: Chest: Unlabored breathing room air. No lymphadenopathy. Heart: Regular rate and rhythm. Abdomen: Soft, nontender, nondistended. No masses or lymphadenopathy. Drains serous Discharge Data Studies Completed and Pending Completed Studies During Hospitalization Category Date Time Status CT abdomen pelvis w con* [id number] Urgent Cat Scan 08/20/24 15:14 Completed Pending at discharge Category Date Time Status Blood Culture Stat Lab 08/20/24 16:56 Results Radiology Impressions Abdomen/Pelvis CT 08/20/24 15:14 IMPRESSION: Findings most suggestive of or consistent with acute appendicitis with rupture with associated component of free air/pneumoperitoneum and marked mesenteric infiltration/inflammation and edema as noted above. Follow-up surgical evaluation. ADDENDUM: 08/20/24 1630 THIS REPORT CONTAINS FINDINGS THAT MAY BE CRITICAL TO PATIENT CARE. The findings were verbally communicated via telephone conference with ELA FOX at 4:27 PM [employer] WORK[employer] on 08/20/2024. The findings were acknowledged and understood. Laboratory Results WBC 11.37 10^3/uL (3.29-11.43) 08/25/24 08:54 RBC 5.08 10^6/uL (3.85-5.65) 08/25/24 08:54 Hgb 13.10 g/dL (11.27-16.99) 08/25/24 08:54 Hct 42.0 % (37-53) 08/25/24 08:54 MCV 82.7 fl (82-101) 08/25/24 08:54 MCH 25.8 pg (27-33) L 08/25/24 08:54 MCHC 31.2 g/dL (30-55) 08/25/24 08:54 RDW 13.7 % (12.1-15.1) 08/25/24 08:54 Plt Count 310 10^3/cmm (157-399) 08/25/24 08:54 MPV 9.4 fL (7.4-10.4) 08/25/24 08:54 Neut % (Auto) 72.9 % 08/25/24 08:54 Lymph % (Auto) 14.2 % 08/25/24 08:54 [place] % (Auto) 8.8 % 08/25/24 08:54 Eos % (Auto) 2.8 % 08/25/24 08:54 Baso % (Auto) 0.5 % 08/25/24 08:54 Neut # (Auto) 8.29 10^3/uL (1.8-7.7) H 08/25/24 08:54 Lymph # (Auto) 1.6 10^3/uL (0.8-4.8) 08/25/24 08:54 [place] # (Auto) 1.0 10^3/uL (0.2-0.9) H 08/25/24 08:54 Eos # (Auto) 0.3 10^3/uL (0.0-0.8) 08/25/24 08:54 Baso # (Auto) 0.1 10^3/uL (0.0-0.1) 08/25/24 08:54 Nucleated RBC % (auto) 0 % 08/25/24 08:54 Nucleated RBCs # 0.0 /100WBC 08/25/24 08:54 Sodium 134 mmol/L (136-145) L 08/21/24 04:54 Potassium 4.7 mmol/L (3.5-5.1) 08/21/24 04:54 Chloride 100 mmol/L (98-107) 08/21/24 04:54 Carbon Dioxide 24 mmol/L (22-29) 08/21/24 04:54 Anion Gap 14.7 (5-19) 08/21/24 04:54 BUN 13 mg/dL (6-20) 08/21/24 04:54 Creatinine 0.9 mg/dL (0.7-1.2) 08/21/24 04:54 GFR Calculation 99.8 mL/min (90-130) 08/21/24 04:54 Glucose 182 mg/dL (65-115) H 08/21/24 04:54 Calculated Osmolality 283 mOsm/kg (285-295) L 08/21/24 04:54 Lactic Acid 3.4 mmol/L (0.5-2.2) H 08/20/24 14:46 Lactic Acid (Sepsis) 1.3 mmol/L (0.5-2.2) 08/20/24 16:56 Calcium 8.3 mg/dL (8.5-10.5) L 08/21/24 04:54 Total Bilirubin 0.7 mg/dL (0.15-1.2) 08/20/24 14:46 AST 12 U/L (0-40) 08/20/24 14:46 ALT 9 U/L (0-41) 08/20/24 14:46 Alkaline Phosphatase 88 U/L (40-130) 08/20/24 14:46 Total Protein 7.7 g/dL (6.6-8.7) 08/20/24 14:46 Albumin 4.0 g/dL (3.5-5.2) 08/20/24 14:46 Globulin 3.7 g/dL (1.3-4.6) 08/20/24 14:46 Lipase 10 U/L (13-60) L 08/20/24 14:46 Urine Color Yellow (Yellow) 08/20/24 15:15 Urine Appearance Clear (CLEAR) 08/20/24 15:15 Urine pH 6.0 (5-7) 08/20/24 15:15 Ur Specific [place] 1.013 (1.005-1.030) 08/20/24 15:15 Urine Protein Trace (Negative) A 08/20/24 15:15 Urine Glucose (UA) Negative (Normal) 08/20/24 15:15 Urine Ketones Trace (Negative) 08/20/24 15:15 Urine Blood Negative (Negative) 08/20/24 15:15 Urine Nitrate Negative (Negative) 08/20/24 15:15 Urine Bilirubin Negative (Negative) 08/20/24 15:15 Urine Urobilinogen 1.0 mg/dL (Negative) 08/20/24 15:15 Ur Leukocyte Esterase Negative (Negative) 08/20/24 15:15 Urine RBC 0-2 /hpf (0-2) 08/20/24 15:15 Urine WBC 6-10 /hpf (0-5) 08/20/24 15:15 Ur Squamous Epith Cells 0-5 /hpf (0-5) 08/20/24 15:15 Amorphous Sediment Not Reportable 08/20/24 15:15 Urine Bacteria None seen /hpf (NONE) 08/20/24 15:15 Hyaline Casts 12.81 /lpf 08/20/24 15:15 Vitals Last Vital Signs Temp 98.2 F 08/25/24 07:49 Pulse 65 08/25/24 07:49 Resp 16 08/25/24 07:49 BP 129/69 08/25/24 07:49 Pulse Ox 97 08/25/24 07:49 O2 Del Method Room Air 08/25/24 07:49 O2 Flow Rate 2.5 08/23/24 03:58 Discharge Plan Discharge Patient Disposition: Home Condition: Stable Prescriptions: New oxycodone 5 mg tablet 5 mg PO Q6H PRN (Reason: pain) 5 Days Qty: 20 0RF amoxicillin-pot clavulanate 875-125 mg tablet 1 tab PO Q12H 9 Days Qty: 18 0RF Discharge Orders: Discharge Order (Routine); Ordered 08/25/24 Ordered By: Jovan Culver Referrals: Jovan Culver MD [Physician] - 1 week Discharge Diet: Usual diet Discharge Activity: Limit activity as instructed Patient Instructions: Oxycodone/Acetaminophen (By mouth), Amoxicillin/Clavulanate Potassium (By mouth), Opioid Safety Activity Restrictions/Additional Instructions: 1. No heavy exercise or lifting greater than 10lbs for 6 weeks. 2. No pools, saunas, bathtubs for [address] if taking narcotics. 4. You may take over the counter tylenol 650mg every 6 hrs and ibuprofen 400mg every 6 hrs as needed for 5 days in addition to the oxycodone. 5. Follow-up in clinic in 1 week. 6. Call the office if you have any concerns or questions. 7. Empty drains daily. Strip drains four times a day. Discharge Attestations Time Spent in Discharge Care*: greater than 30 min Quality Metrics Clinical Quality Measures [ No reported AMI, CVA or VTE this stay] Coding Level of Care Code Acute Code for Chg Fwd Diagnoses Perforated appendicitis K35.32
[2024-08-25] MEDS: pantoprazole 40 mg SDV IVP (10:42)
[2024-08-25] MEDS: heparin 5,000 unit/mL INJ 1 mL 5000 UNIT SUBCUT (10:42)
[2024-08-25 12:02] VITALS: BP 126/82; PULSE 76; RESP 16; TEMP 36.7; O2SAT 96
== END 2024-08-25 11:58 | disposition home or self-care (01) | DRG 357 ==
LOC: ER 17:00 → OR 17:26 → MEDSURG 08-21 10:41
PROVIDERS: Admitting Provider Student in an Organized Health Care Education/Training Program; Emergency Provider Physician Assistant; Visit Provider Student in an Organized Health Care Education/Training Program
PROC: 0W9G40Z Drainage of Peritoneal Cavity with Drainage Device, Percutaneous Endoscopic Approach (ICD-10-PCS; CPT 44950; principal; 2024-08-20 13:45)
DX: K35.33 Acute appendicitis with perforation, localized peritonitis, and gangrene, with abscess (principal); K56.7 Ileus, unspecified; R00.0 Tachycardia, unspecified
CPT/HCPCS: 36415; 74177; 80048; 80053; 81001; 83605; 83690; 85025; 87040; 96365; 96372; 96375; 99285; J0131; J0330; J0780; J1100; J1171; J1644; J1885; J2270; J2405; J2470; J2543; J2704; J3490; J7030; J7120